=== PATIENT | male | born 1995 | race Caucasian/White ===

== ENCOUNTER 2018-06-14 15:38 | Emergency (ER) | payer OTHER ==
[~2018-06-14] VITALS: Ht 175.3 cm; Wt 86.2 kg
[~2018-06-14 15:38] MED LIST: ALBUTEROL2.5 MG/31 IH; AMOXICILLIN 50500 MG PO; APAP/CODEINE ELI5 M1 OR; NAPROSYN500 MG PO; NOHOMEMEDICATIONS; NORCO 5-325 TA1 EACH PO; OSELB75 PO; ZPAK PO
[2018-06-14 15:51] LABS: URINE BILIRUBIN NEGATIVE (Negative); URINE BLOOD TRACE (Negative); URINE CLARITY SL CLOUDY; URINE COLOR YELLOW; URINE GLUCOSE-RANDOM NEGATIVE (Negative); URINE KETONES NEGATIVE (Negative); URINE NITRITE-REFLEX NEGATIVE (Negative); URINE PROTEIN NEGATIVE (Negative); URINE SPECIFIC GRAVITY >= 1.030 (1.005-1.030); URINE UROBILINOGEN 0.2 E.U./dl (0.2-1.0)
[2018-06-14 15:55] LABS: URINE LEUKOCYTES-REFLEX 2+ (Negative)
[2018-06-14 16:03] LABS: MUCUS 0-3 Light strn/LPF (None Seen); SQUAMOUS NONE SEEN /LPF (0-3); URINE RBC 0-2 Rare /HPF (0-2); URINE WBC-REFLEX >25 Many /HPF (0-5)
[2018-06-14 16:04] LABS: BACTERIA-REFLEX 1-9 Few /HPF (None Seen); CASTS None Seen /LPF (None Seen); CRYSTALS None Seen /LPF (None Seen); WBC CLUMPS Few (None Seen)
[2018-06-14] MEDS ORDERED: DOXYCYCLINE MO100 M1 PO (16:25)
[2018-06-14 16:44] VITALS: BP 113/71
== END 2018-06-14 16:44 | disposition home or self-care (01) ==
LOC: M.ERS 15:38
PROVIDERS: Physician Assistant
DX: R36.9 Urethral discharge, unspecified (principal)

== ENCOUNTER 2019-03-19 10:46 | Emergency (ER) | payer OTHER ==
[~2019-03-19] VITALS: Ht 177.8 cm; Wt 83.9 kg
[~2019-03-19 10:46] MED LIST changes: +DOXYCYCLINE MO100 M1 PO
[2019-03-19 11:02] LABS: URINE BLOOD NEGATIVE (Negative); URINE CLARITY CLEAR; URINE COLOR ORANGE; URINE GLUCOSE-RANDOM NEGATIVE (Negative); URINE KETONES 1+ (Negative); URINE LEUKOCYTES-REFLEX NEGATIVE (Negative); URINE NITRITE-REFLEX NEGATIVE (Negative); URINE PROTEIN 2+ (Negative); URINE SPECIFIC GRAVITY >= 1.030 (1.005-1.030)
[2019-03-19 11:03] LABS: ICTOTEST (BILI CONFIRMATORY) Negative (Negative); URINE BILIRUBIN 2+ (Negative)
[2019-03-19 11:10] LABS: SQUAMOUS 0-3 Few /LPF (0-3); URINE RBC None Seen /HPF (0-2); URINE WBC-REFLEX 0-5 Rare /HPF (0-5)
[2019-03-19 11:11] LABS: CASTS None Seen /LPF (None Seen); CRYSTALS None Seen /LPF (None Seen); MUCUS >6 Heavy strn/LPF (None Seen)
[2019-03-19] MEDS ORDERED: DOXYCYCLINE 10100 M2 PO (11:25)
[2019-03-19 12:01] VITALS: BP 149/84
== END 2019-03-19 12:02 | disposition home or self-care (01) ==
LOC: M.ERS 10:46
PROVIDERS: Emergency Medicine Emergency Medical Services
DX: N34.2 Other urethritis (principal); Z20.2 Contact with and (suspected) exposure to infections with a predominantly sexual mode of transmission

== ENCOUNTER 2020-07-20 15:48 | Emergency (ER) | payer OTHER ==
[~2020-07-20] VITALS: Ht 175.3 cm; Wt 86.2 kg
[~2020-07-20 15:48] MED LIST changes: +DOXYCYCLINE 10100 M2 PO
[2020-07-20 15:54] VITALS: BP 156/96
[2020-07-20] MEDS ORDERED: NORCO5 PO (16:08)
[2020-07-20] MEDS ORDERED: PENICILLIN VK500 MG PO (16:08)
== END 2020-07-20 16:10 | disposition home or self-care (01) ==
LOC: M.ERS 15:48
DX: S02.5XXA Fracture of tooth (traumatic), initial encounter for closed fracture (principal); X58.XXXA Exposure to other specified factors, initial encounter; Y93.89 Activity, other specified; Y92.89 Other specified places as the place of occurrence of the external cause; Y99.8 Other external cause status